=== PATIENT | male | born 1980 | race Hispanic/Latino ===

== ENCOUNTER 2023-05-22 10:42 | Emergency (ER) | payer SELFPAY ==
[~2023-05-22] VITALS: Ht 162.6 cm; Wt 68.0 kg
[2023-05-22 10:55] VITALS: BP 180/119
[2023-05-22 10:58] VITALS: BP 168/106
[2023-05-22 11:00] VITALS: BP 167/100
[2023-05-22] MEDS ORDERED: CEPHALEXIN500 MG PO (11:07)
[2023-05-22] MEDS ORDERED: BACTRIM DS1 TAB PO (11:07)
[2023-05-22 11:18] VITALS: BP 167/100
== END 2023-05-22 11:19 | disposition home or self-care (01) | DRG 603 ==
LOC: ED 10:42
DX: L03.114 Cellulitis of left upper limb (principal)

== ENCOUNTER 2023-05-25 06:00 | Emergency (ER) | payer SELFPAY ==
[~2023-05-25] VITALS: Ht 162.6 cm; Wt 58.0 kg
[~2023-05-25 06:00] MED LIST: BACTRIM DS1 TAB PO; CEPHALEXIN500 MG PO
[2023-05-25 06:13] VITALS: BP 151/102
[2023-05-25 06:15] VITALS: BP 146/94
[2023-05-25 06:45] LABS: BASO% 0.6 % (0-3); EOS% 2.6 % (0-8); HEMATOCRIT 43.7 % (39.0-50.0); HEMOGLOBIN 14.3 g/dl (14.0-18.0); IMMATURE GRANULOCYTES 0.2 % (0.0-5.0); LYMPH% 17.9 % (15-41); MEAN CELL VOLUME 88.6 fL CALC (80.0-100.0); MEAN CORPUSCULAR HGB CONC 32.7 g/dL CAL (32.0-36.0); MONO% 8.5 % (2-13); NEUT# 8.29 thou/uL (1.82-7.42); NEUT% 70.2 % (42-76); RED BLOOD COUNT 4.93 mill/uL (4.70-6.10); RED CELL DISTRI WIDTH 12.9 % (11.5-15.5)
[2023-05-25 06:54] LABS: ALBUMIN 4.2 g/dL (3.2-5.0); ALKALINE PHOSPHATASE 86 u/l (38-126); ANION GAP 12 (6-22 (CALC)); BILIRUBIN, TOTAL 1.4 mg/dL (0.2-1.3); BUN 8 mg/dL (9-20); BUN/CREATININE RATIO 7 (12-20 (CALC)); CARBON DIOXIDE 27 mmol/l (22-30); CHLORIDE 101 mmol/l (95-108); CREATININE 1.1 mg/dL (0.7-1.3); GFR FOR AFR.AMER. > 60 ML/MIN (>=60 (CALC)); GFR OTHER RACES > 60 ML/MIN (>=60 (CALC)); POTASSIUM 4.5 mmol/l (3.5-5.1); SGOT/AST 37 u/l (17-59); SODIUM 135 mmol/l (137-146); TOTAL PROTEIN 8.2 g/dL (6.3-8.2)
[2023-05-25] MEDS ORDERED: BACTRIM DS1 TAB PO (07:24)
[2023-05-25] MEDS ORDERED: CEPHALEXIN500 MG PO (07:24)
[2023-05-25] MEDS ORDERED: LORTAB 1010 MG PO (07:24)
[2023-05-25 07:40] VITALS: BP 132/95
[2023-05-25 07:41] VITALS: BP 132/95
== END 2023-05-25 07:45 | disposition home or self-care (01) | DRG 603 ==
LOC: ED 06:00
PROVIDERS: Emergency Medicine
PROC: 0H9EXZZ Drainage of Left Lower Arm Skin, External Approach (ICD-10-PCS; principal; 2023-05-25)
DX: L02.414 Cutaneous abscess of left upper limb (principal)

== ENCOUNTER 2023-05-26 11:57 | Emergency (ER) | payer SELFPAY ==
[~2023-05-26] VITALS: Ht 162.6 cm; Wt 68.0 kg
[~2023-05-26 11:57] MED LIST changes: +LORTAB 1010 MG PO
[2023-05-26 12:22] VITALS: BP 129/86
[2023-05-26 12:30] VITALS: BP 120/76
== END 2023-05-26 12:35 | disposition home or self-care (01) | DRG 951 ==
LOC: ED 11:57
DX: Z48.01 Encounter for change or removal of surgical wound dressing (principal)

== ENCOUNTER 2023-05-26 17:03 | Emergency (ER) | payer SELFPAY ==
[~2023-05-26] VITALS: Ht 162.6 cm; Wt 61.0 kg
[2023-05-26 17:15] VITALS: BP 177/96
[2023-05-26 17:17] VITALS: BP 162/101
[2023-05-26 17:23] VITALS: BP 158/88
== END 2023-05-26 17:32 | disposition home or self-care (01) | DRG 951 ==
LOC: ED 17:03
DX: Z48.01 Encounter for change or removal of surgical wound dressing (principal)

== ENCOUNTER 2023-05-28 09:37 | Emergency (ER) | payer SELFPAY ==
[2023-05-28] VITALS (7 sets, daily range): BP systolic 104–144; BP diastolic 72–84
[~2023-05-28] VITALS: Ht 162.6 cm; Wt 58.9 kg
[2023-05-28] MEDS ORDERED: GENTAMICIN0.1 % EX (11:00)
== END 2023-05-28 16:13 | disposition home or self-care (01) | DRG 951 ==
LOC: ED 09:37
DX: Z48.01 Encounter for change or removal of surgical wound dressing (principal)